=== PATIENT | female | born 1980 | race Caucasian/White ===

== ENCOUNTER 2022-03-08 16:14 | Emergency (ER) | payer OTHER ==
[2022-03-08] MEDS ORDERED: LORazepam 2 MG/ML SDV IVPUSH ONE (16:34)
[2022-03-08] MEDS ORDERED: diphenhydrAMINE 50 MG/ML SDV ONE (17:05)
[2022-03-08] MEDS ORDERED: Haloperidol Lactate 5 MG/ML SDV IM ONE (17:06)
[2022-03-08] MEDS ORDERED: Haloperidol Lactate 5 MG/ML SDV ONE (17:06)
[2022-03-08] MEDS ORDERED: LORazepam 2 MG/ML SDV ONE (17:07)
[2022-03-08] MEDS ORDERED: LORazepam 2 MG/ML SDV IM ONE (17:07)
[2022-03-08] MEDS ORDERED: diphenhydrAMINE 50 MG/ML SDV IM ONE (17:08)
[2022-03-08] MEDS ORDERED: Sodium Chloride 0.9% 10 ML Syringe FLUSH PRN (17:23)
[2022-03-08] MEDS ORDERED: MVI, Adult with Vitamin K 10 ML, Thiamine 100 MG, Folic Acid 1 MG in Lactated Ringers 1... IV ONE ×4 (17:29)
[2022-03-08 18:29] LABS: ANION GAP 17.8 mEq/L (7-13)
[2022-03-08] MEDS ORDERED: Potassium Chloride 20 MEQ in Premix Bag 1 BAG IV ONE (18:36)
[2022-03-08] MEDS ORDERED: Lidocaine 1% 30 ML SDV INJECT ONE (18:37)
[2022-03-08 18:42] LABS: AMPHETAMINES,URINE NEGATIVE (NEGATIVE); BARBITURATES,URINE NEGATIVE (NEGATIVE); BENZODIAZEPINE,URINE NEGATIVE (NEGATIVE); MDMA (ECSTASY), URINE NEGATIVE (NEGATIVE); METHADONE,URINE NEGATIVE (NEGATIVE); METHAMPHETAMINES,URINE NEGATIVE (NEGATIVE); OPIATES,URINE NEGATIVE (NEGATIVE); OXYCODONE,URINE NEGATIVE (NEGATIVE); PHENCYCLIDINE,URINE NEGATIVE (NEGATIVE); TCA,URINE NEGATIVE (NEGATIVE)
[2022-03-08] MEDS ORDERED: levETIRAcetam in NaCl (iso-os) 1,000 MG in Premix Bag 1 BAG IV ONE ×2 (19:37)
== END 2022-03-08 21:38 ==
LOC: DL.ED 16:14
DX: F10.10 Alcohol abuse, uncomplicated (principal); R45.851 Suicidal ideations; Z20.822 Contact with and (suspected) exposure to COVID-19
CPT/HCPCS: 36415; 80053; 80305; 80307; 81001; 81025; 82140; 82947; 83735; 84443; 85025; 85610; 85730; 87635; 96365; 96366; 96367; 96372; 96375; 99284; 99285; J1200; J1630; J1953; J2060; J3411; J3480; J3490; J7120; U0002

== ENCOUNTER 2023-10-10 11:50 | Emergency (ER) | payer MEDICAID ==
[2023-10-10 12:26] LABS: BASOPHILS PERCENT AUTO 0.1 % (0.0-1.0); HEMATOCRIT 38.4 % (37.0-47.0); HEMOGLOBIN 13.4 g/dL (12.0-16.0); LYMPHOCYTES PERCENT AUTO 8.4 % (20.5-50.1); MEAN CORPUSCULAR HEMOGLOBIN 35.9 pg (27.0-34.0); MEAN CORPUSCULAR HGB CONC 34.9 g/dL (33.0-35.0); MEAN CORPUSCULAR VOLUME 102.9 fL (80-100); MONOCYTES PERCENT AUTO 5.3 % (2-8); NEUTROPHILS PERCENT AUTO 86.2 % (42.2-75.2); PLATELET COUNT,PLT 336 10^3/uL (150-450); RED BLOOD CELL COUNT 3.73 10^6/uL (4.2-5.4); WHITE BLOOD CELL COUNT,WBC 13.5 10^3/uL (5.0-10.0)
[2023-10-10] MEDS: MVI, Adult with Vitamin K 10 ML, Folic Acid 1 MG, Thiamine 100 MG in Lactated Ringers 1... IV ONE (12:27)
[2023-10-10] MEDS: diphenhydrAMINE 50 MG/ML SDV IVPUSH ONE (12:28)
[2023-10-10] MEDS: Ondansetron 4 MG/2 ML SDV IVPUSH ONE ×2 (12:28→14:32)
[2023-10-10] MEDS: Sodium Chloride 0.9% 10 ML Syringe FLUSH PRN (12:29)
[2023-10-10 13:02] LABS: ALANINE AMINOTRANSFERASE,ALT 25 U/L (14-59); ALKALINE PHOSPHATASE 64 U/L (46-116); ANION GAP 15.9 mEq/L (7-13); ASPARTATE AMNIOTRANSFERASE,AST 29 U/L (15-37); BLOOD UREA NITROGEN,BUN 8 mg/dL (7-18); BUN/CREATININE RATIO 10.5 (No establ ref range); CALCIUM 8.6 mg/dL (8.5-10.1); CARBON DIOXIDE,CO2 27 mmol/L (21-32); CHLORIDE,CL 95 mmol/L (98-107); CREATININE 0.76 mg/dL (0.55-1.02); EST CRCL DRUG DOSING (CG) 80.19 mL/min; GLUCOSE RANDOM 99 mg/dL (70-99); MAGNESIUM 1.3 mg/dL (1.8-2.4); POTASSIUM,K 2.9 mmol/L (3.5-5.1); PROTEIN TOTAL,TP 7.9 g/dL (6.4-8.2); SODIUM,NA 135 mmol/L (136-145); TSH ULTRASENSITIVE 1.37 uIU/mL (0.36-3.74)
[2023-10-10 13:03] LABS: ESTIMATED GFR 98 mL/min (>=60)
[2023-10-10 13:04] LABS: ETHANOL BLOOD MEDICAL < 3 mg/dL (0)
[2023-10-10] MEDS: Potassium Chloride 10 MEQ Tab.ER PO ONE (13:18)
[2023-10-10] MEDS: Magnesium Sulfate/Water 2 GM in Premix Bag 1 BAG IV ONE (13:19)
== END 2023-10-10 15:05 | disposition home or self-care (01) ==
LOC: DL.ED 11:50
DX: F10.20 Alcohol dependence, uncomplicated (principal); E87.6 Hypokalemia; E83.42 Hypomagnesemia
CPT/HCPCS: 36415; 80053; 80307; 83735; 84443; 85025; 86140; 96365; 96366; 96367; 96375; 96376; 99284; A9270; J1200; J2405; J3411; J3475; J7120; 99283; J3490